=== PATIENT | male | born 1990 ===

== ENCOUNTER 2016-11-19 23:12 | Emergency (ER) | payer OTHER ==
[2016-11-19 23:26] VITALS: BP 156/92; PULSE 94; RESP 18; TEMP 98.7; O2SAT 99
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
== END 2016-11-20 01:31 | disposition home or self-care (01) ==
LOC: H.ER 23:12
DX: M54.9 Dorsalgia, unspecified (principal)